=== PATIENT | male | born 1985 | race Caucasian/White ===

== ENCOUNTER 2024-05-24 10:45 | Inpatient (IN) | payer OTHER ==
[2024-05-24] MEDS: Dextrose 5%-Lactated Ringers 1,000 ML IV SCH (12:33)
[2024-05-24 12:43] LABS: BASOPHILS ABSOLUTE AUTO 0.1 K/mm3 (0.0-0.2); BASOPHILS PERCENT AUTO 0.6 % (0.0-1.0); EOSINOPHILS ABSOLUTE AUTO 0.3 K/mm3 (0.0-0.4); HEMATOCRIT 60.4 % (42.0-52.0); HEMOGLOBIN 21.5 gm/dl (14.0-18.0); IMMATURE GRAN ABSOLUTE AUTO 0.06 K/mm3 (0.00-0.05); IMMATURE GRAN PERCENT AUTO 0.5 % (0.0-0.4); LYMPHOCYTES ABSOLUTE AUTO 1.6 K/mm3 (1.0-4.8); LYMPHOCYTES PERCENT AUTO 13.8 % (24.0-44.0); MEAN CORPUSCULAR HEMOGLOBIN 30.9 pg (28.0-32.0); MEAN CORPUSCULAR HGB CONC 35.6 g/dl (32.0-36.0); MEAN CORPUSCULAR VOLUME 86.8 fl (83.0-99.0); MEAN PLATELET VOLUME 9.9 fl (9.4-12.4); MONOCYTES ABSOLUTE AUTO 1.3 K/mm3 (0.0-0.8); MONOCYTES PERCENT AUTO 11.3 % (0.0-8.0); NEUTROPHILS ABSOLUTE AUTO 8.1 K/mm3 (1.8-7.7); NEUTROPHILS PERCENT AUTO 70.8 % (41.0-71.0); PLATELET COUNT,PLT 428 K/mm3 (150-400); RED BLOOD CELL COUNT 6.96 M/mm3 (4.52-5.90); WHITE BLOOD CELL COUNT,WBC 11.49 K/mm3 (3.9-11.3)
[2024-05-24 13:27] LABS: A/G RATIO 1.1 (1-2); ALBUMIN 3.7 g/dl (3.4-5.0); ANION GAP 18.2 (5-15); BILIRUBIN TOTAL 0.7 mg/dL (0.2-1.0); BUN/CREATININE RATIO 12.2 (14-18); C-REACTIVE PROTEIN 2.44 mg/dL (<0.30); CALCIUM 9.3 mg/dL (8.5-10.1); CREATININE 2.3 mg/dL (0.7-1.3); EST CRCL DRUG DOSING (CG) 47.8 mL/min; MAGNESIUM 1.8 mg/dL (1.8-2.4); POTASSIUM,K 3.2 mEq/L (3.5-5.1); PROTEIN TOTAL,TP 7.2 g/dl (6.4-8.2)
[2024-05-24 13:33] LABS: LACTIC ACID 1.9 mmol/L (0.4-2.0)
[2024-05-24] MEDS: Potassium Chloride 10 MEQ in Premix Bag 1 BAG IV SCH (16:19)
[2024-05-24] MEDS: Azithromycin 500 MG in Sodium Chloride 0.9% 250 ML IV ONE (17:01)
[2024-05-24] MEDS: Lactated Ringers 1,000 ML IV SCH (17:02)
[2024-05-24] MEDS: Sodium Chloride 0.9% 1,000 ML IV SCH (19:23)
[2024-05-24] MEDS: Loperamide 2 MG Cap PO ONE (19:37)
[2024-05-25 00:17] LABS: APPEARANCE,URINE CLEAR (Clear); BILIRUBIN,URINE 3+ (Negative); COLOR,URINE DARK YELLOW (Yellow); GLUCOSE,URINE NEGATIVE (Negative); KETONES,URINE 1+ (Negative); LEUKOCYTE ESTERASE,URINE NEGATIVE (Negative); NITRITE,URINE NEGATIVE (Negative); OCCULT BLOOD,URINE NEGATIVE (Negative); PROTEIN,URINE 1+ (Negative); UROBILINOGEN,URINE 0.2 (0.2-1.0)
[2024-05-25 00:25] LABS: BACTERIA,URINE FEW /hpf (FEW); EPITHELIAL CELLS,URINE 0-5 /hpf (0-5); HYALINE CASTS,URINE 40-50 /lpf (0-5); MUCUS,URINE MANY /hpf (FEW); RBC,URINE 0-5 /hpf (0-5); WBC,URINE 0-5 /hpf (0-5)
[2024-05-25] MEDS: Ondansetron 4 MG/2 ML SDV IV PRN (02:52)
[2024-05-25] MEDS: Acetaminophen 325 MG Tab PO PRN (03:00)
[2024-05-25 05:38] LABS: BASOPHILS ABSOLUTE AUTO 0.1 K/mm3 (0.0-0.2); BASOPHILS PERCENT AUTO 0.4 % (0.0-1.0); EOSINOPHILS ABSOLUTE AUTO 0.3 K/mm3 (0.0-0.4); EOSINOPHILS PERCENT AUTO 2.4 % (0.0-6.0); HEMATOCRIT 52.4 % (42.0-52.0); IMMATURE GRAN ABSOLUTE AUTO 0.08 K/mm3 (0.00-0.05); IMMATURE GRAN PERCENT AUTO 0.6 % (0.0-0.4); LYMPHOCYTES ABSOLUTE AUTO 2.2 K/mm3 (1.0-4.8); MEAN CORPUSCULAR HEMOGLOBIN 30.8 pg (28.0-32.0); MEAN CORPUSCULAR HGB CONC 35.7 g/dl (32.0-36.0); MEAN CORPUSCULAR VOLUME 86.2 fl (83.0-99.0); MEAN PLATELET VOLUME 10.1 fl (9.4-12.4); MONOCYTES ABSOLUTE AUTO 1.4 K/mm3 (0.0-0.8); MONOCYTES PERCENT AUTO 9.7 % (0.0-8.0); NEUTROPHILS ABSOLUTE AUTO 9.9 K/mm3 (1.8-7.7); NEUTROPHILS PERCENT AUTO 70.9 % (41.0-71.0); PLATELET COUNT,PLT 398 K/mm3 (150-400); RED BLOOD CELL COUNT 6.08 M/mm3 (4.52-5.90); WHITE BLOOD CELL COUNT,WBC 13.95 K/mm3 (3.9-11.3)
[2024-05-25 05:49] LABS: ALBUMIN 3.2 g/dl (3.4-5.0); ANION GAP 16.9 (5-15); BILIRUBIN TOTAL 0.8 mg/dL (0.2-1.0); BUN/CREATININE RATIO 12.9 (14-18); C-REACTIVE PROTEIN 1.41 mg/dL (<0.30); CALCIUM 8.3 mg/dL (8.5-10.1); CREATININE 2.1 mg/dL (0.7-1.3); EST CRCL DRUG DOSING (CG) 52.35 mL/min; POTASSIUM,K 2.9 mEq/L (3.5-5.1); PROTEIN TOTAL,TP 6.3 g/dl (6.4-8.2)
[2024-05-25 05:54] LABS: HEMOGLOBIN 18.7 gm/dl (14.0-18.0)
[2024-05-25] MEDS: Potassium Chloride 10 MEQ in Premix Bag 1 BAG IV SCH (09:07)
[2024-05-25] MEDS: Enoxaparin 40 MG/0.4 ML Syringe SUBCUT SCH (09:07)
[2024-05-25] MEDS: Loperamide 2 MG Cap PO PRN (10:38)
[2024-05-25] MEDS: Azithromycin 500 MG in Sodium Chloride 0.9% 250 ML IV SCH (17:22)
[2024-05-26 06:59] LABS: BASOPHILS PERCENT AUTO 0.4 % (0.0-1.0); EOSINOPHILS ABSOLUTE AUTO 0.7 K/mm3 (0.0-0.4); EOSINOPHILS PERCENT AUTO 7.7 % (0.0-6.0); HEMATOCRIT 41.4 % (42.0-52.0); IMMATURE GRAN ABSOLUTE AUTO 0.05 K/mm3 (0.00-0.05); IMMATURE GRAN PERCENT AUTO 0.6 % (0.0-0.4); LYMPHOCYTES ABSOLUTE AUTO 2.3 K/mm3 (1.0-4.8); LYMPHOCYTES PERCENT AUTO 27.8 % (24.0-44.0); MEAN CORPUSCULAR HEMOGLOBIN 30.8 pg (28.0-32.0); MEAN CORPUSCULAR HGB CONC 35.3 g/dl (32.0-36.0); MEAN CORPUSCULAR VOLUME 87.3 fl (83.0-99.0); MEAN PLATELET VOLUME 9.9 fl (9.4-12.4); MONOCYTES PERCENT AUTO 11.6 % (0.0-8.0); NEUTROPHILS ABSOLUTE AUTO 4.4 K/mm3 (1.8-7.7); NEUTROPHILS PERCENT AUTO 51.9 % (41.0-71.0); RED BLOOD CELL COUNT 4.74 M/mm3 (4.52-5.90); WHITE BLOOD CELL COUNT,WBC 8.39 K/mm3 (3.9-11.3)
[2024-05-26 07:01] LABS: HEMOGLOBIN 14.6 gm/dl (14.0-18.0); PLATELET COUNT,PLT 272 K/mm3 (150-400)
[2024-05-26 07:28] LABS: A/G RATIO 1.2 (1-2); ALBUMIN 2.5 g/dl (3.4-5.0); ANION GAP 11.7 (5-15); BILIRUBIN TOTAL 0.5 mg/dL (0.2-1.0); BUN/CREATININE RATIO 13.3 (14-18); C-REACTIVE PROTEIN 0.82 mg/dL (<0.30); CREATININE 1.2 mg/dL (0.7-1.3); EST CRCL DRUG DOSING (CG) 91.61 mL/min; POTASSIUM,K 2.7 mEq/L (3.5-5.1); PROTEIN TOTAL,TP 4.6 g/dl (6.4-8.2)
[2024-05-26] MEDS: Potassium Chloride 20 MEQ Tab.ER PO ONE (08:01)
[2024-05-26] MEDS: Potassium Chloride 10 MEQ in Premix Bag 1 BAG IV SCH (08:02)
[2024-05-26 08:18] LABS: CALCIUM 7.8 mg/dL (8.5-10.1)
[2024-05-26 08:40] LABS: MAGNESIUM 1.6 mg/dL (1.8-2.4); PHOSPHORUS 3.8 mg/dL (2.6-4.7)
[2024-05-27 18:46] LABS: CALPROTECTIN,FECAL 404 ug/g (<=49)
== END 2024-05-26 16:46 | disposition home or self-care (01) | DRG 392 ==
LOC: JD.ED 10:45 → JD.MS 17:30
PROVIDERS: ADMIT Family Medicine; ATTEND Family Medicine
DX: A09 Infectious gastroenteritis and colitis, unspecified (principal); N17.9 Acute kidney failure, unspecified; Z68.41 Body mass index [BMI] 40.0-44.9, adult; E66.01 Morbid (severe) obesity due to excess calories; E86.1 Hypovolemia; E87.6 Hypokalemia; E86.0 Dehydration; N18.31 Chronic kidney disease, stage 3a; Z88.0 Allergy status to penicillin; Z87.891 Personal history of nicotine dependence; Z79.899 Other long term (current) drug therapy
CPT/HCPCS: 36415; 80053; 81001; 82010; 83605; 83690; 83735; 83930; 84100; 85025; 85652; 86140; 87045; 87046; 87493; 87899; 96361; 96365; 99222; 99232; 99239; 99284-25; 99285; A9270-GY; J0456; J1650; J2405; J3480; J7030; J7050; J7120; J7121